=== PATIENT | male | born 1975 | race Two or more races ===

== ENCOUNTER 2016-05-10 11:12 | Emergency (ER) | payer OTHER ==
--- NOTE | 2016-05-10 13:12 | RAD ---
CHEST 2 VIEWS HISTORY: Cough x3 weeks. Frontal and lateral chest radiographs dated 05/10/2016. COMPARISON: None. FINDINGS: FOCAL AIRSPACE OPACITY: No gross airspace consolidation. Vague nodular density measuring 1.2 cm at the right lung base PLEURAL EFFUSION: None.. CARDIOMEDIASTINAL SILHOUETTE: Nonenlarged. PNEUMOTHORAX: None identified. OSSEOUS STRUCTURES: Minor thoracic disc degeneration. IMPRESSION: No acute cardiopulmonary process noted. 1.2 cm nodular density of right lung base on frontal view, recommend nipple marker study.
[2016-05-10] MEDS ORDERED: ACETAMINOPHEN 325 MG TABLET ONE (15:08)
[2016-05-10] MEDS ORDERED: IBUPROFEN 600 MG TABLET ONE (15:08)
== END 2016-05-10 15:23 | disposition home or self-care (01) ==
LOC: ED 11:12
DX: J06.9 Acute upper respiratory infection, unspecified (principal); R05 Cough; F17.210 Nicotine dependence, cigarettes, uncomplicated
CPT/HCPCS: 71020; 99283 ×2; A9270 ×2